=== PATIENT | male | born 1995 | race Caucasian/White ===

== ENCOUNTER 2022-03-02 23:05 | Emergency (ER) | payer SELFPAY ==
[2022-03-02 23:08] VITALS: BP 135/87; PULSE 68; RESP 16; TEMP 36.6; O2SAT 100
--- NOTE | 2022-03-03 00:57 | ED.DENTAL ---
HPI - Dental/Oral General Chief complaint: Dental/Oral Stated complaint: Left lower dental pain Time Seen by Provider: 03/03/22 00:42 Source: patient Mode of arrival: ambulatory Limitations: no limitations History of Present Illness HPI Narrative: Patient is a 27-year-old male who presents the ED with report of left lower dental pain. Patient reports having pain that began on Wednesday, 03/02, worsening over the last few hours. He took 2 ibuprofen at 10 PM without relief. Patient has history of fractured teeth. Denies any significant gum swelling that he is able to notice. No fevers. No difficulty swallowing or breathing. Patient does not currently have a dentist but is trying to get into see one. Teeth map: 1. both teeth fractured, dental decay Related Data Allergies Allergy/AdvReac Type Severity Reaction Status Date / Time No Known Allergies Allergy Mild Verified 03/02/22 23:06 Review of Systems Review of Systems: CONSTITUTIONAL: Denies fever, chills, or sweats. ENT: Reports L lower dental pain. Denies gum swelling, dysphagia, sore throat, or otalgia. RESPIRATORY: Denies cough or dyspnea. GASTROINTESTINAL: Denies nausea, vomiting. GENITOURINARY: Denies dysuria or hematuria. All systems reviewed & are unremarkable except as noted in HPI and below PMFSH Past Medical History Medical History (Updated 03/03/22 @ 01:02 by Jessica Kaufman PA-C) No pertinent past medical history Surgical History Surgical History (Updated 03/03/22 @ 00:59 by Jessica Kaufman PA-C) No pertinent past surgical history Social History Social History (Updated 03/03/22 @ 01:00 by Jessica Kaufman PA-C) Smoking status: Former smoker Exam Narrative: GENERAL: Well appearing, well-nourished, non-toxic, in no acute distress. HEAD: Normocephalic, atraumatic. THROAT: Pharynx clear, no exudate. MMs moist. Diffuse dental decay. 2 broken teeth in left lower molar region. Mild erythema with tenderness to palpation to outer gumline. No significant swelling of gumline. No fluctuance appreciated. No swelling of floor of mouth. NECK: Supple. No adenopathy, no masses. No significant tenderness to left-sided neck or jaw. RESPIRATORY: Airway patent, respirations nonlabored. CARDIOVASCULAR: Regular rate and rhythm without murmurs, rubs, or gallops. Radial pulses 2+ and equal bilaterally. MUSCULOSKELETAL: Moves all extremities. Strength/ROM intact without gross deformities. SKIN: Warm, dry, normal color. No rashes. NEURO: A&O X3. Speech clear. Cranial nerves II-XII grossly intact. Steady gait. No ataxic movements. PSYCHIATRIC: Appropriate mood and affect. Normal interaction. Course Vital Signs Vital signs: Vital Signs Temperature 97.8 F 03/02/22 23:08 Pulse Rate 68 03/02/22 23:08 Respiratory Rate 16 03/02/22 23:08 Blood Pressure 135/87 03/02/22 23:08 Pulse Oximetry 100 03/02/22 23:08 Oxygen Delivery Room Air 03/02/22 23:08 Temperature 97.8 F 03/02/22 23:08 Pulse Rate 68 03/02/22 23:08 Respiratory Rate 16 03/02/22 23:08 Blood Pressure 135/87 03/02/22 23:08 Pulse Oximetry 100 03/02/22 23:08 Oxygen Delivery Room Air 03/02/22 23:08 MDM - Dental/Oral MDM Narrative Medical decision making narrative: Patient's pain is consistent with dental caries. There are no focal signs of space-occupying abscess. Tenderness and erythema along left lower gumline, but no focal fluctuance. The patient is controlling secretions well without signs of airway compromise. Patient is felt reasonable for outpatient follow-up with dental evaluation. Will be prescribed Augmentin and short course of [place] for pain control at home. Given information for local dentist for follow-up and reasons to return to the ED. Emphasized the importance of seeing dentist for further evaluation. Vital signs stable at time of discharge. Medical Records Attestation: I reviewed the patient's medical records. Discharge Plan
[2022-03-03] MEDS: AMOXICILLIN/CLAVULANATE K 875-125 MG TAB 1 TABLET PO (01:10)
[2022-03-03] MEDS: HYDROcodone/acetaminophen (*CRX) 5-325 MG TABLET 1 TAB PO (01:10)
== END 2022-03-03 01:12 | disposition home or self-care (01) ==
PROVIDERS: Emergency Provider Emergency Medicine
DX: K08.89 Other specified disorders of teeth and supporting structures (principal); S02.5XXA Fracture of tooth (traumatic), initial encounter for closed fracture; X58.XXXA Exposure to other specified factors, initial encounter
CPT/HCPCS: 99283; A9270